=== PATIENT | female | born 1995 | race African-American/Black ===

== ENCOUNTER 2017-04-22 16:20 | Emergency (ER) | payer OTHER ==
[2017-04-22 16:28] VITALS: BMI 34.0
[2017-04-22] MEDS ORDERED: guaiFENesin/CODEINE 10 ML UNIT-DOSE CUPS PO ONE (17:01)
--- NOTE | 2017-04-22 17:01 | PDOC ---
History of Present Illness - General History Source: Patient Exam Limitations: No Limitations - History of Present Illness Initial Comments: 04/22/17 17:08 The patient is a 21 year old female with history of asthma who presents to the ED complaining of 2 days of shortness of breath and chest tightness. She states she has had a chronic cough for the past 5 years. She has seen her primary care doctor who reportedly told her "it will get better with cough drops". Since yesterday she has had worsening of her cough with chest tightness and shortness of breath. She also reports nasal congestion, sore throat, and low grade fever. No nausea, vomiting, or diarrhea. Denies sick contacts. <Gudelia Carias - Last Filed: 04/22/17 17:24> <Cami Clay - Last Filed: 04/22/17 18:50> - General Chief Complaint: Shortness of Breath Stated Complaint: CHEST PAIN/ S.O.B Time Seen by Provider: 04/22/17 16:41 Past History <Gudelia Carias - Last Filed: 04/22/17 17:24> - Past Medical History Asthma: Yes COPD: No - Suicide/Smoking/Psychosocial Hx Smoking History: Never smoked Information on smoking cessation initiated: No Hx Alcohol Use: No Drug/Substance Use Hx: No Substance Use Type: Marijuana <Cami Clay - Last Filed: 04/22/17 18:50> - Past Medical History Allergies/Adverse Reactions: Allergies Allergy/AdvReac Type Severity Reaction Status Date / Time ibuprofen [From Motrin] Allergy Verified 04/22/17 16:24 Home Medications: Ambulatory Orders Albuterol Sulfate Inhaler - [Ventolin Hfa Inhaler -] 1 - 2 inh PO Q4H PRN #1 inhaler 04/22/17 Fluticasone Prop 0.05% Nasal [Flonase -] 1 - 2 spray NS DAILY PRN #1 spray.pump 04/22/17 Guaifenesin AC [Robitussin AC] 10 ml PO HS #60 liquid MDD 10 04/22/17 Review of Systems - Review of Systems Able to Perform ROS?: Yes Comments:: 04/22/17 17:10 GENERAL/CONSTITUTIONAL: +Mild fever. No weakness. HEAD, EYES, EARS, NOSE AND THROAT: +Nasal congestion, sore throat. No change in vision. No ear pain or discharge. CARDIOVASCULAR: No palpitations or lightheadedness. RESPIRATORY: +cough x 5 years. +chest tightness, SOB. No wheezing or hemoptysis. GASTROINTESTINAL: No nausea, vomiting, diarrhea or constipation. GENITOURINARY: No dysuria, frequency, or change in urination. MUSCULOSKELETAL: No joint or muscle swelling or pain. No neck or back pain. SKIN: No rash NEUROLOGIC: No headache, vertigo, loss of consciousness, or change in strength/ sensation. ENDOCRINE: No increased thirst. No abnormal weight change. HEMATOLOGIC/LYMPHATIC: No anemia, easy bleeding, or history of blood clots. ALLERGIC/IMMUNOLOGIC: No hives or skin allergy. <Gudelia Carias - Last Filed: 04/22/17 17:24> *Physical Exam - Vital Signs Last Vital Signs Temp Pulse Resp BP Pulse Ox 98.6 F 119 H 20 142/73 100 04/22/17 16:25 04/22/17 16:25 04/22/17 16:25 04/22/17 16:25 04/22/17 16:25 - Physical Exam Comments: 04/22/17 17:16 GENERAL: Awake, alert, and fully oriented, in no acute distress. Coughing throughout exam. HEAD: No signs of trauma EYES: PERRLA, EOMI, sclera anicteric, conjunctiva clear ENT: Auricles normal inspection, nares patent. Moist mucosa. Oropharynx normal with no exudates, uvula midline without edema. +Nasal congestion. NECK: Normal ROM, supple, no JVD, or masses LUNGS: Scant focal wheezing. No crackles or rales. HEART: Tachycardic rate, normal rhythm, no murmurs, rubs or gallops ABDOMEN: Protuberant abdomen. Soft, nontender, normoactive bowel sounds. No guarding, no rebound. No masses EXTREMITIES: Normal range of motion, no edema. No clubbing or cyanosis. No cords, erythema, or tenderness NEUROLOGICAL: Alert and oriented x 3. Moves all extremities. Face is symmetric. SKIN: Warm, Dry, normal turgor, no rashes or lesions noted. <Gudelia Carias - Last Filed: 04/22/17 17:24> - Vital Signs Last Vital Signs Temp Pulse Resp BP Pulse Ox 98.6 F 119 H 20 142/73 100 04/22/17 16:25 04/22/17 16:25 04/22/17 16:25 04/22/17 16:25 04/22/17 16:25 <Cami Clay - Last Filed: 04/22/17 18:50> Medical Decision Making - Medical Decision Making 04/22/17 17:24 EKG on triage demonstrates sinus tachycardia at 110 bpm. Otherwise unremarkable EKG. <Gudelia Carias - Last Filed: 04/22/17 17:24> - Medical Decision Making 04/22/17 18:40 - she had a resp treatment and the tachycardia on her ekg is probably a resultant of this treatment .there is no ischemia on ekg -no fever, no dysnpea -100 % pulse ox on room air pt has significant nasal congestion and post nasal drip at night time -her coughing is worst at night -she has scant wheeze at rt middle lobe Pt states that she has had this same problem for several years and often has nasal congestion -recommended ENT follow up <Cami Clay - Last Filed: 04/22/17 18:50> *DC/Admit/Observation/Transfer - Attestations Scribe Attestion: 04/22/17 17:18 Documentation prepared by Gudelia Carias, acting as medical cost consultant for Cami Clay MD. <Gudelia Carias - Last Filed: 04/22/17 17:24> <Cami Clay - Last Filed: 04/22/17 18:50> Diagnosis at time of Disposition: Nasal congestion, Post-nasal drainage, Cough - Discharge Dispostion Disposition: HOME Condition at time of disposition: Stable - Prescriptions Prescriptions: Albuterol Sulfate Inhaler - [Ventolin Hfa Inhaler -] 1 - 2 inh PO Q4H PRN #1 inhaler PRN Reason: Wheezing Fluticasone Prop 0.05% Nasal [Flonase -] 1 - 2 spray NS DAILY PRN #1 spray.pump PRN Reason: Nasal Congestion Guaifenesin AC [Robitussin AC] 10 ml PO HS #60 liquid MDD 10 - Referrals Referrals: Damon Paez MD [Staff Physician] - - Patient Instructions Printed Discharge Instructions: DI for Cough -- Adult, DI for Nasal Congestion Additional Instructions: 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
[2017-04-22] MEDS ORDERED: ALBUTEROL SO4 2.5/IPRATROPIUM 0.5 INH SOL 3 ML VIAL.NEB. NEB ONE ×2 (17:02→17:06)
[2017-04-22] MEDS ORDERED: predniSONE 20 MG TABLET (UD) PO ONE (17:02)
[2017-04-22] MEDS ORDERED: predniSONE 20 MG TABLET (UD) ONE (17:05)
[2017-04-22] MEDS ORDERED: guaiFENesin/CODEINE 5 ML UNIT-DOSE CUPS PO ONE (17:06)
[2017-04-22] MEDS ORDERED: ACETAMINOPHEN 325 MG TABLET (FP) PO ONE (17:57)
[2017-04-22] MEDS ORDERED: ACETAMINOPHEN 325 MG TABLET (FP) ONE (18:04)
[2017-04-22 18:12] VITALS: BP 122/77; PULSE 102; TEMP 97.9
--- NOTE | 2017-04-23 10:46 | EKG ---
Test Reason : Blood Pressure : / mmHG Vent. Rate : 110 BPM Atrial Rate : 110 BPM P-R Int : 156 ms QRS Dur : 064 ms QT Int : 308 ms P-R-T Axes : 042 069 051 degrees QTc Int : 416 ms SINUS TACHYCARDIA POSSIBLE LEFT ATRIAL ENLARGEMENT BORDERLINE ECG NO PREVIOUS ECGS AVAILABLE Confirmed by EZEKIEL DAO MD ([id number]) on 04/23/2017 10:45:44 AM Referred By: Confirmed By:EZEKIEL DAO MD
== END 2017-04-22 18:13 | disposition home or self-care (01) ==
LOC: JER 16:20
PROC: 3E0F7GC Introduction of Other Therapeutic Substance into Respiratory Tract, Via Natural or Artificial Opening (ICD-10-PCS; principal; 2017-04-22)
DX: R05 Cough (principal); R09.81 Nasal congestion; R09.82 Postnasal drip
CPT/HCPCS: 93005; 93010; 99283-25